=== PATIENT | male | born 1980 | race Caucasian/White ===

== ENCOUNTER 2019-03-26 01:45 | Emergency (ER) ==
[2019-03-26 01:55] VITALS: BP 141/93; TEMP 98.7; BMI 23.6
[2019-03-26] MEDS ORDERED: PHENERGAN 25 MG/ML VIAL IM STA (02:08)
[2019-03-26] MEDS ORDERED: DILAUDID 4 MG/ML SYRINGE IM STA (02:08)
[2019-03-26] MEDS ORDERED: DILAUDID 1 MG/ML SYRINGE ONE (02:11)
--- NOTE | 2019-03-26 02:11 | ED.PDOC ---
General ED Provider: Dr. NICANOR HOLMAN-ER Chief Complaint: Headache Stated Complaint: sol had a migraine for 2 days Time Seen by Physician: 01:50 Mode of Arrival: Wheelchair Information Source: Patient Exam Limitations: No limitations Nursing and Triage Documentation Reviewed and Agree: Yes Does patient meet sepsis criteria?: No System Inflammatory Response Syndrome: Not Applicable Sepsis Protocol: For patient's 13 years and over: Temp is 96.8 and below OR 101 and greater Pulse >90 BPM Resp >20/minute Acutely Altered Mental Status Are patient's symptoms suggestive of a new infection, such as: -Pneumonia -Skin, Soft Tissue -Endocarditis -UTI -Bone, Joint Infection -Implantable Device -Acute Abdominal Infection -Wound Infection -Meningitis -Blood Stream Catheter Infection -Unknown Neurological Complaint Exam - Headache Complaint/Exam Onset: Gradual Duration: 2 days Symptoms Are: Still present Timing: Constant Worst Headache Ever: No Initial Severity: Mild Current Severity: Moderate Location: Diffuse Character: Reports: Dull, Throbbing, Pressure, Typical headache, Migraine Aggravating: Reports: Bright lights Associated Signs and Symptoms: Reports: Nausea, Vomiting Related History: Reports: Similar episode Related Surgical History: Reports: None SAH Risk Factors: Reports: None Meningitis Risk Factors: Reports: None SDH Risk Factors: Reports: None Temporal Arteritis Risk Factors: Reports: Female Normal Head CT Within Last 12 Months: No Papilledema Present: No Temporal Artery Tenderness: Present: None Sinus Tenderness: Present: None TMJ Tenderness: Present: None Glascow Coma Scale (see protocol): 15 Meningeal Signs Positive: No Pain on Passive Flexion-Positive Kernig's: No ROM Limited In: No Limitiations Focal Weakness: Present: None Focal Sensory Loss: Present: None Gait: Normal Nystagmus Present: No Gag Reflex Present: Yes [id number]: Normal Findings Babinski Sign: Negative Right, Negative Left Heel to Toe Normal: Yes Differential Diagnoses: Migraine Review of Systems - Review Of Systems Constitutional: Reports: No symptoms Eyes: Reports: No symptoms Ears, Nose, Mouth, Throat: Reports: No symptoms Respiratory: Reports: No symptoms Cardiac: Reports: No symptoms GI: Reports: Nausea, Vomiting : Reports: No symptoms Musculoskeletal: Reports: No symptoms Skin: Reports: No symptoms Neurological: Reports: Headache Endocrine: Reports: No symptoms Hematologic/Lymphatic: Reports: No symptoms All Other Systems: Reviewed and Negative Past Medical History - Past Medical History Previously Healthy: Yes Endocrine: Reports: None Cardiovascular: Reports: None Respiratory: Reports: None Hematological: Reports: None Gastrointestinal: Reports: None Genitourinary: Reports: None Neuro/Psych: Reports: None Musculoskeletal: Reports: None Cancer: Reports: None - Surgical History General Surgical History: Reports: Unknown - Family History Family History: Reports: Unknown - Social History Smoking Status: Current every day smoker, Heavy tobacco smoker Hx Substance Use: No Alcohol Screening: None - Immunizations Tetanus Shot up to Date: Yes Physical Exam - Physical Exam Appearance: Well-appearing, No pain distress, Well-nourished Pain Distress: Moderate Eyes: DONELL, EOMI, Conjunctiva clear ENT: Ears normal, Nose normal, Oropharynx normal Neck: Supple Respiratory: Airway patent, Breath sounds clear, Breath sounds equal, Respirations nonlabored Cardiovascular: RRR GI/: Soft, Nontender, No masses, Bowel sounds normal, No Organomegaly Musculoskeletal: Normal strength Skin: Warm, Dry, Normal color Neurological: Sensation intact, Motor intact, Reflexes intact, Cranial nerves intact, Alert, Oriented Psychiatric: Affect appropriate, Mood appropriate Interpretation - Radiology Interpretation Radiology Interpretation By: Radiologist Radiology Results: Negative Exam Interpreted: CT Scan Re-Evaluation - Re-Evaluation Time of Re-Evaluation: 03:00 Status: Improved Vital Signs Stable: Yes Pain Level: 1 Appearance: NAD Lungs: Clear Skin: Warm and Dry Neuro: Alert and Oriented X3 CV: RRR Critical Care Note - Critical Care Note Total Time (mins): 0 Course - Course Orders, Labs, Meds: Orders Category Date Time Status Hydromorphone HCl/Pf [Dilaudid 4 mg/ml Syringe] MEDS 03/26/19 02:08 Stat 2 mg IM ONCE STA Promethazine HCl [Phenergan 25 mg/ml Vial] MEDS 03/26/19 02:08 Stat 25 mg IM ONCE STA CT HEAD W/O CONTRAST Stat RADS 03/26/19 02:08 Ordered Medications Generic Name Dose Route Start Last Admin Trade Name Freq PRN Reason Stop Dose Admin Hydromorphone HCl 2 mg 03/26/19 02:08 Dilaudid 4 Mg/Ml Syringe IM 03/26/19 02:09 ONCE STA Promethazine HCl 25 mg 03/26/19 02:08 Phenergan 25 Mg/Ml Vial IM 03/26/19 02:09 ONCE STA the patient give a hx of having migraine finley for a long time and this headache is like the usual finley Vital Signs: Temp Pulse Resp BP Pulse Ox 03/26/19 01:45 98.7 F 93 H 20 141/93 H 96 Departure - Departure Time of Disposition: 02:11 Disposition: HOME SELF-CARE Discharge Problem: Migraine Qualifiers: Migraine type: unspecified Status migrainosus presence: without status migrainosus Intractability: not intractable Qualified Code(s): G43.909 - Migraine, unspecified, not intractable, without status migrainosus Instructions: Migraine Headache (ED) Condition: Good Pt referred to PMD for follow-up: Yes IPMP verified?: No Additional Instructions: f/u with pcp Allergies/Adverse Reactions: Allergies No Known Allergies Allergy (Verified 03/26/19 01:54) Home Medications: Ambulatory Orders 1 [No Reported Medications] 03/26/19 Disposition Discussed With: Patient
--- NOTE | 2019-03-26 03:00 | CT ---
EXAM: CT head without contrast 03/26/2019. Sagittal and coronal reformatted images obtained HISTORY: Headache COMPARISON: 09/10/2014 FINDINGS: There is no evidence of intracranial hemorrhage. The midline is maintained. There is no h ydrocephalus. No cerebellar tonsillar ectopia. Evaluation of the calvarium shows no fracture. Th e mastoid air cells are normally pneumatized. IMPRESSION: No acute intracranial abnormality.
[2019-03-26] MEDS ORDERED: TORADOL IM STA (03:44)
== END 2019-03-26 04:15 | disposition home or self-care (01) ==
LOC: ED 01:45
DX: R51 Headache (principal); R11.2 Nausea with vomiting, unspecified; Z72.0 Tobacco use; G43.909 Migraine, unspecified, not intractable, without status migrainosus
CPT/HCPCS: 96372; 99283

== ENCOUNTER 2019-05-13 00:58 | Emergency (ER) ==
[2019-05-13 01:08] VITALS: BP 130/90; TEMP 99.2; BMI 24.7
[2019-05-13] MEDS ORDERED: ALBUTEROL 0.083% NEB NEB STA (01:39)
--- NOTE | 2019-05-13 01:44 | ED.PDOC ---
General ED Provider: Dr. NICANOR MAGDALENO Chief Complaint: Cough Stated Complaint: Cough, congestion, sore throat, with Nausea & Vomiting Time Seen by Physician: 01:25 Mode of Arrival: Walk-In Information Source: Patient Exam Limitations: No limitations Nursing and Triage Documentation Reviewed and Agree: Yes Does patient meet sepsis criteria?: No System Inflammatory Response Syndrome: Temp 101F or Greater, Not Applicable Sepsis Protocol: For patient's 13 years and over: Temp is 96.8 and below OR 101 and greater Pulse >90 BPM Resp >20/minute Acutely Altered Mental Status Are patient's symptoms suggestive of a new infection, such as: -Pneumonia -Skin, Soft Tissue -Endocarditis -UTI -Bone, Joint Infection -Implantable Device -Acute Abdominal Infection -Wound Infection -Meningitis -Blood Stream Catheter Infection -Unknown Respiratory Complaint Exam - Respiratory Complaint/Exam Onset/Duration: 24 hr Symptoms Are: Still present Timing: Constant Initial Severity: Moderate Current Severity: Mild Location: Chest Character: Reports: Productive cough, Barking cough Aggravating: Reports: None Alleviating: Reports: None Associated Signs and Symptoms: Reports: Wheezing, Dizziness, Vomiting, Decreased oral intake Related History: Denies: Similar episode History of Healthcare-Acquired Pneumonia: No Related Surgical History: Reports: None Pulmonary Embolism Risk Factors: None Cardiac Risk Factors: Reports: None Pseudomonas Risk Factors: Reports: None Tuberculosis Risk Factors: Reports: None Status Asthmaticus Risk Factors: Reports: None Review of Systems - Review Of Systems Constitutional: Reports: Chills, Fever, Weakness, Other Eyes: Reports: No symptoms Ears, Nose, Mouth, Throat: Reports: No symptoms Respiratory: Reports: Cough, Short of air, Wheezing Cardiac: Reports: No symptoms GI: Reports: No symptoms : Reports: No symptoms Musculoskeletal: Reports: No symptoms Skin: Reports: No symptoms Neurological: Reports: No symptoms Endocrine: Reports: No symptoms Hematologic/Lymphatic: Reports: No symptoms All Other Systems: Reviewed and Negative Past Medical History - Past Medical History Previously Healthy: Yes Endocrine: Reports: None Cardiovascular: Reports: None Respiratory: Reports: None Hematological: Reports: None Gastrointestinal: Reports: None Genitourinary: Reports: None Neuro/Psych: Reports: None Musculoskeletal: Reports: None Cancer: Reports: None - Surgical History General Surgical History: Reports: Unknown - Family History Family History: Reports: Unknown - Social History Smoking Status: Current every day smoker, Heavy tobacco smoker Hx Substance Use: No Alcohol Screening: None - Immunizations Tetanus Shot up to Date: Yes Physical Exam - Physical Exam Appearance: Ill-appearing Ill-appearing: Moderate Pain Distress: Moderate Eyes: EOMI ENT: Ears normal, Nose normal, Oropharynx normal Neck: Supple Respiratory: Airway patent, Breath sounds clear, Breath sounds equal, Respirations nonlabored Cardiovascular: RRR, Pulses normal, No rub, No murmur GI/: Soft, Nontender, No masses, Bowel sounds normal, No Organomegaly Musculoskeletal: Normal strength, ROM intact, No edema, No calf tenderness Skin: Warm, Dry, Normal color Neurological: Sensation intact, Motor intact, Reflexes intact, Cranial nerves intact, Alert, Oriented Critical Care Note - Critical Care Note Total Time (mins): 60 Course - Course Hematology/Chemistry: 05/13/19 01:55 05/13/19 01:55 Orders, Labs, Meds: Lab Review 05/13/19 05/13/19 05/13/19 01:45 01:55 01:55 WBC 10.72 H RBC 4.57 L Hgb 14.4 Hct 41.8 L MCV 91.5 MCH 31.5 H MCHC 34.4 RDW Coeff of Chris 13.2 Plt Count 187 Immature Gran % (Auto) 1.1 Neut % (Auto) 71.4 Lymph % (Auto) 17.4 Putnam % (Auto) 8.6 Eos % (Auto) 1.2 Baso % (Auto) 0.3 Immature Gran # (Auto) 0.1 Neut # (Auto) 7.7 H Lymph # (Auto) 1.9 Putnam # (Auto) 0.9 Eos # (Auto) 0.1 Baso # (Auto) 0.0 Sodium 140.6 Potassium 3.67 Chloride 106.8 Carbon Dioxide 22.6 Anion Gap 14.87 BUN 6.1 L Creatinine 0.81 Estimated GFR (MDRD) 106.00 BUN/Creatinine Ratio 7.53 Glucose 87.6 Calcium 8.52 Total Bilirubin 0.52 AST 15.5 L ALT 14.5 Alkaline Phosphatase 60.0 Total Protein 6.54 Albumin 3.98 Globulin 2.56 Albumin/Globulin Ratio 1.55 Influ A Molecular Assay Negative by naat Influ B Molecular Assay Negative by naat Orders Category Date Time Status NEBULIZER TREATMENT Stat CARDIO 05/13/19 01:39 Completed IV [ED IV/MEDIPORT/POWERPORT] .ONCE EMERGENCY 05/13/19 02:13 Active BLOOD CULTURE (ED ONLY) Stat LAB 05/13/19 01:55 Received CBC W/ AUTO DIFF Stat LAB 05/13/19 01:55 Completed CMP [COMPREHENSIVE METABOLIC PANEL] Stat LAB 05/13/19 01:55 Completed FLU A & B MOLECULAR [FLU A/B MOLECULAR] Stat LAB 05/13/19 01:45 Completed RAPID STREP SCREEN [MOLECULAR GROUP A STREP] Stat LAB 05/13/19 01:45 Completed Albuterol Sulfate 0.083% Neb [Albuterol 0.083% Neb] MEDS 05/13/19 01:39 Discontinued 1 vial NEB ONCE STA Famotidine Inj [Pepcid] MEDS 05/13/19 02:16 Discontinued 20 mg IVP ONCE STA Fluticasone Propionate [Flonase] MEDS 05/13/19 03:04 Discontinued 2 spray AL ONCE STA Ketorolac Tromethamine [Toradol] MEDS 05/13/19 02:17 Discontinued 30 mg IVP ONCE STA Methylprednisolone Sod Succ/Pf [Solu-Medrol 125 mg] MEDS 05/13/19 03:17 Discontinued 125 mg IVP ONCE STA Ondansetron HCl/Pf [Zofran 4 mg/2 ml] MEDS 05/13/19 02:16 Discontinued 4 mg IVP ONCE STA Piperacillin Sodium/Tazobactam [Zosyn 3.375 gm] 3.375 MEDS 05/13/19 02:59 Active gm 0.9 % Sodium Chloride [Sodium Chloride] 50 ml IV ONCE Sodium Chloride 0.9% [Sodium Chloride] 1,000 ml MEDS 05/13/19 02:14 Discontinued IV BOLUS CHEST, 2 VIEWS PA & LAT Stat RADS 05/13/19 01:[address] SINUSES W/O CONTRAST Stat RADS 05/13/19 01:38 Completed Medications Generic Name Dose Route Start Last Admin Trade Name Freq PRN Reason Stop Dose Admin Piperacillin Sod/Tazobactam 50 mls @ 50 mls/hr 05/13/19 02:59 05/13/19 03:19 Sod 3.375 gm/ Sodium Chloride IV 05/13/19 03:58 50 mls/hr ONCE STA Administration Discontinued Medications Generic Name Dose Route Start Last Admin Trade Name Freq PRN Reason Stop Dose Admin Albuterol Sulfate 1 vial 05/13/19 01:39 05/13/19 01:50 Albuterol 0.083% Neb NEB 05/13/19 01:40 1 vial ONCE STA Administration Famotidine 20 mg 05/13/19 02:16 05/13/19 02:35 Pepcid IVP 05/13/19 02:17 20 mg ONCE STA Administration Fluticasone Propionate 2 spray 05/13/19 03:04 Flonase AL 05/13/19 03:05 ONCE STA Sodium Chloride 1,000 mls @ 1,000 mls/hr 05/13/19 02:14 05/13/19 02:31 Sodium Chloride IV 05/13/19 03:13 1,000 mls/hr BOLUS STA Administration Ketorolac Tromethamine 30 mg 05/13/19 02:17 05/13/19 02:35 Toradol IVP 05/13/19 02:18 30 mg ONCE STA Administration Methylprednisolone Sodium Succinate 125 mg 05/13/19 03:17 05/13/19 03:18 Solu-Medrol 125 Mg IVP 05/13/19 03:18 125 mg ONCE STA Administration Ondansetron HCl 4 mg 05/13/19 02:16 05/13/19 02:33 Zofran 4 Mg/2 Ml IVP 05/13/19 02:17 4 mg ONCE STA Administration Vital Signs: Temp Pulse Resp BP Pulse Ox 05/13/19 00:59 99.2 F 86 20 130/90 96 Departure - Departure Time of Disposition: 03:45 Disposition: HOME SELF-CARE Discharge Problem: Pansinusitis Instructions: Sinusitis (ED) Condition: Good Pt referred to PMD for follow-up: Yes IPMP verified?: No Additional Instructions: Take meds as directed off work for next 2 days Prescriptions: Amoxicillin/Potassium Clav [Augmentin 875-125 mg Tab] 1 tab PO Q12HR #30 tablet Albuterol Sulfate [Albuterol Sulfate Hfa] 8.5 gm IH QID #1 hfa.aer.ad Ondansetron [Zofran Odt] 4 mg PO Q8H #7 tab.rapdis Prednisone 10 mg PO DAILY #10 tablet Allergies/Adverse Reactions: Allergies No Known Allergies Allergy (Verified 05/13/19 01:07) Home Medications: Ambulatory Orders Albuterol Sulfate [Albuterol Sulfate Hfa] 8.5 gm IH QID #1 hfa.aer.ad 05/13/19 Amoxicillin/Potassium Clav [Augmentin 875-125 mg Tab] 1 tab PO Q12HR #30 tablet 05/13/19 Ondansetron [Zofran Odt] 4 mg PO Q8H #7 tab.rapdis 05/13/19 Prednisone 10 mg PO DAILY #10 tablet 05/13/19
[2019-05-13] MEDS ORDERED: ZOFRAN ODT PO STA (02:04)
[2019-05-13] MEDS ORDERED: SODIUM CHLORIDE 1,000 ML IV STA (02:14)
[2019-05-13] MEDS ORDERED: ZOFRAN 4 MG/2 ML IVP STA (02:16)
[2019-05-13] MEDS ORDERED: PEPCID IVP STA (02:16)
[2019-05-13] MEDS ORDERED: TORADOL IVP STA (02:17)
--- NOTE | 2019-05-13 02:48 | DI ---
EXAM: Chest, two views, 05/13/2019 HISTORY: Cough COMPARISON: 06/02/2009 FINDINGS / IMPRESSION: Cardiomediastinal countours appear stable. There is no focal pulmonary conso lidation. No pleural effusion or pneumothorax. No acute cardiopulmonary process.
--- NOTE | 2019-05-13 02:49 | CT ---
EXAM: CT sinuses without contrast. HISTORY: Sinus pressure and congestion. PROCEDURE: Contiguous axial CT images of the sinuses without contrast with coronal and sagittal refo rmats. FINDINGS: The frontal sinuses are normal in appearance. There is minimal mucosal thickening in the e thmoid air cells. The sphenoid sinus is normal in appearance. There is a small mucous retention cys t in the right maxillary sinus. There is trace mucosal thickening in the right maxillary sinus. The re is mucosal thickening obstructing the right ostiomeatal complex. There is trace mucosal thickenin g in the left maxillary sinus. There is mucosal thickening obstructing the left ostiomeatal complex. The bones are unremarkable. The temporomandibular joints are maintained. The orbits are normal in appearance. Impression: Paranasal sinusitis as described.
[2019-05-13] MEDS ORDERED: SOLU-MEDROL 125 MG IM STA (02:55)
[2019-05-13] MEDS ORDERED: ZOSYN 3.375 GM 3.375 GM in SODIUM CHLORIDE 50 ML IV STA (02:59)
[2019-05-13] MEDS ORDERED: FLONASE NAS STA (03:04)
[2019-05-13] MEDS ORDERED: SOLU-MEDROL 125 MG IVP STA (03:17)
== END 2019-05-13 04:30 | disposition home or self-care (01) ==
LOC: ED 00:58
DX: J32.4 Chronic pansinusitis (principal); R06.02 Shortness of breath; J02.9 Acute pharyngitis, unspecified; R11.2 Nausea with vomiting, unspecified; R05 Cough; R06.2 Wheezing; F17.210 Nicotine dependence, cigarettes, uncomplicated
CPT/HCPCS: 36415; 80053; 85025; 87040; 87502; 87651; 94640; 96365; 96375; 99283